=== PATIENT | male | born 1985 | race Two or more races ===

== ENCOUNTER → 2016-11-06 | Outpatient (CLI) | payer BC ==
--- NOTE | 2016-11-07 05:57 | REP ---
Clinical: Venous insufficiency with lower extremity ulceration. Technique: Mercado scale and color Doppler evaluation using linear high frequency transducer followed by reflux evaluation. Findings: Ultrasound examination of the left lower extremity deep venous structures from the common femoral vein to the popliteal vein demonstrates normal compressibility flow and wave patterns in response to respiration and augmentation. There is no evidence for deep venous thrombosis. The patient is noted to be status post ablation and there is complete occlusion of the greater saphenous vein. Longstanding collateral vessels and perforators below the level of the greater saphenous occlusion are noted including collateral vessels draining to the hypogastric vein. Impression: 1. No evidence for deep venous thrombosis. 2. Limited evaluation for reflux with innumerable perforators and collateral vessels involving the superficial venous system. Signed by Micky Dela Cruz MD 11/07/2016 05:49 A
== END ==
LOC: M RAD 13:30
PROVIDERS: ATTEND Surgery
DX: I87.312 Chronic venous hypertension (idiopathic) with ulcer of left lower extremity (principal)

== ENCOUNTER → 2016-12-24 | Outpatient (CLI) | payer BC ==
[~2016-12-24] MED LIST: ANDR1.62 TOP; LYRI75CA PO; PROP10TA56 PO; SERT-138 PO; XARE20TA PO
[2016-12-24 13:19] LABS: MEAN CORPUSCULAR HEMOGLOBIN 36.9 pg (27.0-33.0); MEAN CORPUSCULAR HGB CONC 35.3 g/dl (32.0-36.5); MEAN CORPUSCULAR VOLUME 104.7 fl (80.0-96.0); RED CELL DISTRIBUTION WIDTH 12.5 % (11.5-14.5); WHITE BLOOD COUNT 3.6 K/mm3 (4.0-10.0)
[2016-12-24 14:01] LABS: ANION GAP 9 MEQ/L (8-16); BLOOD UREA NITROGEN 10 MG/DL (7-18); CALCIUM LEVEL 8.9 MG/DL (8.5-10.1); CARBON DIOXIDE LEVEL 25 MEQ/L (21-32); CHLORIDE LEVEL 111 MEQ/L (98-107); CREATININE FOR GFR 0.85 MG/DL (0.70-1.30); GLOMERULAR FILTRATION RATE > 60.0 (>60); GLUCOSE, FASTING 104 MG/DL (70-105); POTASSIUM SERUM 4.1 MEQ/L (3.5-5.1); SODIUM LEVEL 145 MEQ/L (136-145)
== END ==
LOC: M LAB 12:11
PROVIDERS: ATTEND Surgery Vascular Surgery
DX: I70.249 Atherosclerosis of native arteries of left leg with ulceration of unspecified site (principal)

== ENCOUNTER → 2017-01-19 | Outpatient (CLI) | payer BC ==
--- NOTE | 2017-01-19 15:06 | ECGEPIP ---
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 No prior ECG available for comparison at the time of interpretation. Electronically Signed On 01-19-2017 15:05:51 EDT by Óscar Orozco
== END ==
LOC: M EKG 11:11
PROVIDERS: ATTEND Internal Medicine
DX: E66.01 Morbid (severe) obesity due to excess calories (principal)

== ENCOUNTER 2017-01-20 07:02 | Day surgery (SDC) | payer BC ==
[~2017-01-20] VITALS: Ht 188 cm; Wt 158.8 kg
[2017-01-20] MEDS ORDERED: LR 1,000 ML IV ONE (08:00)
[2017-01-20] MEDS ORDERED: LIDOCAINE W/EPINEPHRINE 1% 20ML VIAL As Ordered ONE (08:14)
[2017-01-20] MEDS ORDERED: diphenhydrAMINE INJ 50MG/ML VIAL (J1200) As Ordered ONE (09:07)
[2017-01-20] MEDS ORDERED: dexameTHASONE 4 MG/ML 1ML VIAL (J1100) As Ordered ONE (09:07)
[2017-01-20] MEDS ORDERED: PROPOFOL 500 MG/50 ML VIAL As Ordered ONE (09:07)
[2017-01-20] MEDS ORDERED: fentaNYL 100 MCG/2 ML INJECTION (J3010) As Ordered ONE ×2 (09:07→09:28)
[2017-01-20] MEDS ORDERED: MIDAZOLAM INJ 2 MG/2 ML VIAL (J2250) As Ordered ONE (09:15)
[2017-01-20] MEDS ORDERED: ONDANSETRON 4MG/2ML VIAL (J2405) As Ordered ONE (09:28)
[2017-01-20] MEDS ORDERED: KETOROLAC 60 MG/2 ML VIAL (J1885) As Ordered ONE (09:28)
[2017-01-20] MEDS ORDERED: PROPOFOL 200 MG/20 ML VIAL As Ordered ONE (09:39)
[2017-01-20] MEDS ORDERED: HYDROmorphone HCL 1 MG/ML SYRINGE (J1170) As Ordered ONE (09:58)
[2017-01-20] MEDS ORDERED: PERCOCET 5MG/325MG TAB As Ordered ONE (10:09)
[2017-01-20] MEDS: PERCOCET 5MG/325MG TAB PO PRN ×2 (10:10→11:20)
[2017-01-20] MEDS ORDERED: ONDANSETRON 4MG/2ML VIAL (J2405) IV PRN (10:30)
[2017-01-20] MEDS ORDERED: HYDROmorphone HCL 1 MG/ML SYRINGE (J1170) IV PRN (10:30)
[2017-01-20] MEDS ORDERED: LR 1,000 ML IV SCH (10:30)
[2017-01-20 11:55] VITALS: BP 134/69
--- NOTE | 2017-01-28 11:59 | RO ---
DATE OF PROCEDURE: 01/20/2017 PREOPERATIVE DIAGNOSES: Nonhealing left lower extremity venous stasis ulcer, left greater saphenous vain valvular insufficiency, left lower extremity varicose veins. POSTOPERATIVE DIAGNOSES: Nonhealing left lower extremity venous stasis ulcer, left greater saphenous vain valvular insufficiency, left lower extremity varicose veins. PROCEDURE: Left greater saphenous vein radiofrequency ablation. ATTENDING SURGEON: Dr. Eleazar Wray DIORAMA MODEL MAKER: None. INDICATION: The patient is an 31-year-old male with significant varicosities and reflux in his left lower extremity who underwent an ultrasound showing left greater saphenous vein valvular insufficiency. The patient will undergo a left greater saphenous vein radiofrequency ablation. ANESTHESIA: Local with laryngeal mask airway (LMA) anesthesia. ESTIMATED BLOOD LOSS: 15 mL. INTRAVENOUS (IV) FLUID: 700 mL. SPECIMEN: None. COMPLICATION: None. DRAINS: None. IMPLANTS: None. PROCEDURE: The patient was taken to the operating room and placed supine on the operating room table, and the left lower extremity was prepped and draped in a standard surgical fashion. The greater saphenous vein was cannulated with a micropuncture needle after anesthetizing the overlying skin with 1% lidocaine and using ultrasound guidance. The radiofrequency catheter was then advanced through the greater saphenous vein to the midthigh. The greater saphenous vein in the upper thigh had previously been ablated. The vein was then circumferentially injected around with tumescent solution, after which the greater saphenous vein was ablated using the radiofrequency ablation catheter. The catheter was then removed. Dressings were applied. The patient tolerated the procedure well. All instrument, sponge, and needle counts were correct at the end of the case. There were no complications. Dr. Wray was present for and directed the entire case. The patient was transferred to the recovery room awake, alert, extubated, and in stable condition.
== END 2017-01-20 12:28 | disposition home or self-care (01) ==
LOC: M SDC 07:02
PROVIDERS: ATTEND Surgery Vascular Surgery
DX: I83.028 Varicose veins of left lower extremity with ulcer other part of lower leg (principal); L97.829 Non-pressure chronic ulcer of other part of left lower leg with unspecified severity; G47.30 Sleep apnea, unspecified; Z79.02 Long term (current) use of antithrombotics/antiplatelets; Z79.899 Other long term (current) drug therapy; Z88.8 Allergy status to other drugs, medicaments and biological substances; F32.9 Major depressive disorder, single episode, unspecified; F41.9 Anxiety disorder, unspecified
CPT/HCPCS: 36475; J1100; J1170; J1200; J1885; J2250; J2405; J3010

== ENCOUNTER → 2017-02-03 | Outpatient (CLI) | payer BC ==
--- NOTE | 2017-02-09 08:36 | REP ---
Clinical: Left lower extremity pain. History of prior ablation. Technique: Mercado scale and color Doppler evaluation using linear high frequency transducer. Findings: Ultrasound examination of the left lower extremity deep venous structures from the common femoral vein to the popliteal vein demonstrates thrombus from the common femoral vein through the femoral vein with occlusive thrombus in the distal femoral vein. The patient is status post ablation with thrombus noted in the mid greater saphenous vein. Impression: Acute thrombus extending from the common femoral vein through the distal femoral vein with complete occlusion in the distal femoral vein. Signed by Micky Dela Cruz MD 02/09/2017 08:27 A
== END ==
LOC: M RAD 17:06
PROVIDERS: ATTEND Surgery Vascular Surgery
DX: I83.022 Varicose veins of left lower extremity with ulcer of calf (principal)

== ENCOUNTER → 2018-08-11 | Outpatient (CLI) | payer BC ==
--- NOTE | 2018-08-12 07:35 | REP ---
Clinical: Chronic venous hypertension and swelling . Technique: Mercado scale and color Doppler evaluation of the left lower extremity using linear high frequency transducer. Comparison: 02/03/2017 Findings: Ultrasound examination of the left lower extremity deep venous structures from the common femoral vein to the popliteal vein demonstrates chronic appearing nonocclusive thrombus involving the common femoral vein through mid/distal superficial femoral vein. The patient is noted to be status post ablation with appropriate occlusion of the greater saphenous vein. Evaluation for reflux demonstrates a mild reflux through the common femoral vein, anterior accessory saphenous vein, patent portions of the superficial femoral vein, popliteal vein. Collateral vasculature also identified from the calf to the proximal thigh and appear to bypass the greater saphenous vein and common femoral vein extending directly into the pelvis/mid groin. Impression: 1. 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 2. Reflux through the deep venous system along with collateral vasculature identified from the calf extending towards the left groin/pelvis Electronically Signed by Micky Dela Cruz MD 08/12/2018 07:26 A
== END ==
LOC: M RAD 11:13
PROVIDERS: ATTEND Surgery
DX: I87.312 Chronic venous hypertension (idiopathic) with ulcer of left lower extremity (principal); I70.202 Unspecified atherosclerosis of native arteries of extremities, left leg

== ENCOUNTER 2018-08-15 18:02 | Emergency (ER) | payer BC ==
[~2018-08-15] VITALS: Ht 188 cm; Wt 159.1 kg
[2018-08-15 18:06] VITALS: BP 141/70
== END 2018-08-15 20:08 | disposition home or self-care (01) ==
LOC: M ED 18:02
DX: F43.0 Acute stress reaction (principal); F32.9 Major depressive disorder, single episode, unspecified; R45.851 Suicidal ideations; E11.9 Type 2 diabetes mellitus without complications; I10 Essential (primary) hypertension; Z79.899 Other long term (current) drug therapy; Z88.5 Allergy status to narcotic agent

== ENCOUNTER → 2018-10-26 | Outpatient (CLI) | payer OTHER | LOC: M OUTALCOH 07:58 | PROVIDERS: ATTEND Psychiatry & Neurology Psychiatry | DX: Z13.9 Encounter for screening, unspecified (principal); F15.20 Other stimulant dependence, uncomplicated; F10.20 Alcohol dependence, uncomplicated ==

== ENCOUNTER 2018-11-04 13:57 | Outpatient (RCR) | payer OTHER | END 2018-11-21 | LOC: M OUTALCOH 13:57 | PROVIDERS: ATTEND Psychiatry & Neurology Psychiatry | DX: F10.20 Alcohol dependence, uncomplicated (principal); F15.20 Other stimulant dependence, uncomplicated ==

== ENCOUNTER → 2018-11-09 | Outpatient (REF) | payer OTHER ==
[2018-11-09 13:35] LABS: BASO % 0.7 % (0.0-1.0); EOS # 0.4 10^3/uL (0.0-0.50); EOS % 8.7 % (0.0-3.0); HEMATOCRIT 41.6 % (42.0-52.0); HEMOGLOBIN 13.7 g/dl (13.5-17.5); LYMPH # 1.1 10^3/uL (1.5-4.5); LYMPH % 26.9 % (24.0-44.0); MEAN CORPUSCULAR HEMOGLOBIN 32.9 pg (27.0-33.0); MEAN CORPUSCULAR HGB CONC 32.9 g/dl (32.0-36.5); MEAN CORPUSCULAR VOLUME 99.8 fl (80.0-96.0); MONO # 0.5 10^3/uL (0.0-0.8); MONO % 11.4 % (0.0-5.0); NEUTROPHILS # 2.1 10^3/uL (1.8-7.7); NEUTROPHILS % 52.1 % (36.0-66.0); PLATELET COUNT, AUTOMATED 125 10^3/uL (150-450); RED BLOOD COUNT 4.17 10^6/uL (4.30-6.10); WHITE BLOOD COUNT 4.1 10^3/uL (4.0-10.0)
[2018-11-09 13:52] LABS: INR 1.48; PROTHROMBIN TIME 18.2 SECONDS (12.1-14.4)
[2018-11-09 13:59] LABS: ALBUMIN 3.7 GM/DL (3.2-5.2); ALT/SGPT 47 U/L (12-78); BILIRUBIN,TOTAL 1.5 MG/DL (0.2-1.0); BLOOD UREA NITROGEN 12 MG/DL (7-18); CALCIUM LEVEL 9.3 MG/DL (8.5-10.1); CARBON DIOXIDE LEVEL 28 MEQ/L (21-32); CHLORIDE LEVEL 107 MEQ/L (98-107); CREATININE FOR GFR 0.78 MG/DL (0.70-1.30); GLOMERULAR FILTRATION RATE > 60.0 (>60); GLUCOSE, FASTING 100 MG/DL (70-100); SODIUM LEVEL 140 MEQ/L (136-145); TOTAL PROTEIN 8.5 GM/DL (6.4-8.2)
[2018-11-09 14:31] LABS: CHLAMYDIA DNA AMPLIFICATION NEGATIVE (NEGATIVE); GC DNA AMPLIFICATION NEGATIVE (NEGATIVE)
[2018-11-10 10:11] LABS: HEPATITIS B SURFACE ANTIBODY POSITIVE (POSITIVE)
[2018-11-10 10:20] LABS: HEPATITIS B SURFACE ANTIGEN NEGATIVE (NEGATIVE)
[2018-11-11 00:07] LABS: CHLAMYDIA PHARYNGEAL APTIMA Negative (Negative); CHLAMYDIA RECTAL APTIMA Negative (Negative); GC PHARYNGEAL APTIMA Negative (Negative); GC RECTAL APTIMA Negative (Negative); HEPATITIS A IgG TOTAL Negative (Negative); HEPATITIS B CORE ANTIBODY IGG Negative (Negative)
[2018-11-16 09:13] LABS: HIV 1&2 SCREEN CENTAUR REACTIVE (NEGATIVE)
== END ==
LOC: M SFHCPLAZ 12:09
PROVIDERS: ATTEND Internal Medicine Infectious Disease
DX: Z72.53 High risk bisexual behavior (principal); F10.10 Alcohol abuse, uncomplicated; Z20.6 Contact with and (suspected) exposure to human immunodeficiency virus [HIV]

== ENCOUNTER → 2018-11-23 | Outpatient (REF) | payer OTHER | LOC: M SFHCPLAZ 14:03 | PROVIDERS: ATTEND Internal Medicine Infectious Disease | DX: Z72.53 High risk bisexual behavior (principal); Z20.6 Contact with and (suspected) exposure to human immunodeficiency virus [HIV] ==

== ENCOUNTER → 2019-03-15 | Outpatient (REF) | payer OTHER ==
[2019-03-15 15:57] LABS: BLOOD UREA NITROGEN 14 MG/DL (7-18); CALCIUM LEVEL 9.2 MG/DL (8.5-10.1); CARBON DIOXIDE LEVEL 27 MEQ/L (21-32); CHLORIDE LEVEL 108 MEQ/L (98-107); CREATININE FOR GFR 0.86 MG/DL (0.70-1.30); GLOMERULAR FILTRATION RATE > 60.0 (>60); GLUCOSE, FASTING 97 MG/DL (70-100); POTASSIUM SERUM 4.1 MEQ/L (3.5-5.1); SODIUM LEVEL 139 MEQ/L (136-145)
[2019-03-15 16:08] LABS: APPEARANCE, URINE CLEAR (CLEAR); BACTERIA, URINE AUTO NEGATIVE (NEGATIVE); BILIRUBIN, URINE AUTO NEGATIVE (NEGATIVE); BLOOD, URINE BLOOD NEGATIVE (NEGATIVE); COLOR, URINE YELLOW (YELLOW); GLUCOSE, URINE (UA) AUTO NEGATIVE (NEGATIVE); KETONE, URINE AUTO NEGATIVE (NEGATIVE); LEUKOCYTE ESTERASE, URINE AUTO NEGATIVE (NEGATIVE); MUCUS, URINE SMALL (NEGATIVE); NITRITE, URINE AUTO NEGATIVE (NEGATIVE); PROTEIN, URINE AUTO NEGATIVE (NEGATIVE); RBC, URINE AUTO 1 /HPF (0-3); SPECIFIC GRAVITY URINE AUTO 1.019 (1.002-1.035); SQUAMOUS EPITHELIAL CELL UR AU 0 /HPF (0-6); WBC, URINE AUTO 2 /HPF (0-3)
[2019-03-15 17:40] LABS: CHLAMYDIA DNA AMPLIFICATION NEGATIVE (NEGATIVE); GC DNA AMPLIFICATION NEGATIVE (NEGATIVE)
[2019-03-16 09:57] LABS: HIV 1&2 SCREEN CENTAUR NEGATIVE (NEGATIVE)
[2019-03-20 00:06] LABS: CHLAMYDIA PHARYNGEAL APTIMA Negative (Negative); CHLAMYDIA RECTAL APTIMA Negative (Negative); GC PHARYNGEAL APTIMA Negative (Negative); GC RECTAL APTIMA Negative (Negative)
== END ==
LOC: M SFHCPLAZ 13:59
PROVIDERS: ATTEND Internal Medicine Infectious Disease
DX: Z20.6 Contact with and (suspected) exposure to human immunodeficiency virus [HIV] (principal)

== ENCOUNTER 2019-07-22 10:00 | Outpatient (RCR) | payer OTHER | END 2019-07-23 | LOC: M PT 10:00 | PROVIDERS: ATTEND Internal Medicine | DX: I89.0 Lymphedema, not elsewhere classified (principal) ==

== ENCOUNTER 2019-07-29 11:58 | Outpatient (RCR) | payer OTHER | END 2019-08-23 | LOC: M PT 11:58 | PROVIDERS: ATTEND Internal Medicine | DX: I89.0 Lymphedema, not elsewhere classified (principal) ==

== ENCOUNTER → 2019-12-26 | Outpatient (REF) | payer OTHER ==
[2020-01-22 05:12] LABS: BASO % 0.6 % (0.0-1.0); EOS # 0.2 10^3/uL (0.0-0.5); EOS % 4.9 % (0.0-3.0); HEMATOCRIT 40.4 % (42.0-52.0); HEMOGLOBIN 13.2 g/dl (13.5-17.5); LYMPH # 1.2 10^3/uL (1.5-5.0); LYMPH % 25.5 % (24.0-44.0); MEAN CORPUSCULAR HEMOGLOBIN 31.2 pg (27.0-33.0); MEAN CORPUSCULAR HGB CONC 32.7 g/dl (32.0-36.5); MEAN CORPUSCULAR VOLUME 95.5 fl (80.0-96.0); MONO # 0.5 10^3/uL (0.0-0.8); MONO % 10.6 % (0.0-5.0); NEUTROPHILS # 2.7 10^3/uL (1.5-8.5); NEUTROPHILS % 58.2 % (36.0-66.0); PLATELET COUNT, AUTOMATED 135 10^3/uL (150-450); RED BLOOD COUNT 4.23 10^6/uL (4.30-6.10); WHITE BLOOD COUNT 4.7 10^3/uL (4.0-10.0)
[2020-02-06 10:00] LABS: BLOOD UREA NITROGEN 17 MG/DL (7-18); CALCIUM LEVEL 9.2 MG/DL (8.5-10.1); CARBON DIOXIDE LEVEL 26 MEQ/L (21-32); CHLORIDE LEVEL 108 MEQ/L (98-107); CREATININE FOR GFR 1.13 MG/DL (0.70-1.30); GLOMERULAR FILTRATION RATE > 60.0 (>60); GLUCOSE, FASTING 91 MG/DL (70-100); HIV 1&2 SCREEN CENTAUR NEGATIVE (NEGATIVE); POTASSIUM SERUM 4.2 MEQ/L (3.5-5.1); SODIUM LEVEL 138 MEQ/L (136-145)
[2020-02-11 10:58] LABS: CHLAMYDIA DNA AMPLIFICATION NEGATIVE (NEGATIVE); GC DNA AMPLIFICATION NEGATIVE (NEGATIVE)
[2020-03-16 12:47] LABS: GC PHARYNGEAL APTIMA SEE SEPARATE REPORT; GC RECTAL APTIMA SEE SEPARATE REPORT
[2020-03-16 12:48] LABS: CHLAMYDIA PHARYNGEAL APTIMA SEE SEPARATE REPORT; CHLAMYDIA RECTAL APTIMA SEE SEPARATE REPORT
== END ==
LOC: M SFHCPLAZ 09:38
PROVIDERS: ATTEND Internal Medicine Infectious Disease
DX: R30.0 Dysuria (principal)

== ENCOUNTER → 2022-10-31 | Outpatient (REF) | payer OTHER ==
[2022-10-31 15:28] LABS: GC DNA AMPLIFICATION NEGATIVE (NEGATIVE)
== END ==
LOC: M SFHCPLAZ 12:55
PROVIDERS: ATTEND Internal Medicine Infectious Disease
DX: Z11.3 Encounter for screening for infections with a predominantly sexual mode of transmission (principal)

== ENCOUNTER → 2023-03-19 | Outpatient (REF) | payer OTHER ==
[2023-03-19 21:01] LABS: GC DNA AMPLIFICATION NEGATIVE (NEGATIVE)
[2023-03-19 22:11] LABS: GC DNA AMPLIFICATION NEGATIVE (NEGATIVE)
== END ==
LOC: M SFHCPLAZ 17:05
PROVIDERS: ATTEND Internal Medicine Infectious Disease
DX: Z72.53 High risk bisexual behavior (principal)

== ENCOUNTER → 2023-06-02 | Outpatient (CLI) | payer OTHER | LOC: M PLALAB 15:06 | PROVIDERS: ATTEND Physician Assistant Medical | DX: Z72.53 High risk bisexual behavior (principal); Z20.6 Contact with and (suspected) exposure to human immunodeficiency virus [HIV] ==

== ENCOUNTER → 2023-10-22 | Outpatient (CLI) | payer OTHER ==
[2023-10-26 14:13] LABS: HIV-1 RNA PCR QUANT 2 LC550285 <20 copies/mL (.)
== END ==
LOC: M PLALAB 13:11
PROVIDERS: ATTEND Internal Medicine Infectious Disease
DX: Z72.53 High risk bisexual behavior (principal)

== ENCOUNTER → 2024-02-02 | Outpatient (CLI) | payer OTHER ==
[2024-02-02 15:33] LABS: BASO % 0.8 % (0.0-1.0); EOS # 0.2 10^3/uL (0.0-0.5); EOS % 8.7 % (0.0-3.0); HEMATOCRIT 45.1 % (42.0-52.0); HEMOGLOBIN 15.3 g/dl (13.5-17.5); LYMPH # 0.8 10^3/uL (1.5-5.0); MEAN CORPUSCULAR HEMOGLOBIN 34.3 pg (27.0-33.0); MEAN CORPUSCULAR HGB CONC 33.9 g/dl (32.0-36.5); MEAN CORPUSCULAR VOLUME 101.1 fl (80.0-96.0); MONO # 0.3 10^3/uL (0.0-0.8); MONO % 9.9 % (2.0-8.0); NEUTROPHILS # 1.3 10^3/uL (1.5-8.5); NEUTROPHILS % 50.2 % (36.0-66.0); PLATELET COUNT, AUTOMATED 113 10^3/uL (150-450); RED BLOOD COUNT 4.46 10^6/uL (4.30-6.10); WHITE BLOOD COUNT 2.6 10^3/uL (4.0-10.0)
[2024-02-02 15:56] LABS: C REACTIVE PROTEIN QUANTITATIV < 0.40 MG/DL (<1.0)
[2024-02-02 15:59] LABS: IMMUNOGLOBULIN A 303.4 MG/DL (40-350); IMMUNOGLOBULIN G 1794 MG/DL (650-1600)
[2024-02-02 16:33] LABS: HEPATITIS C VIRUS ABY INDEX 0.06 INDEX (<0.8)
[2024-02-02 17:13] LABS: GC DNA AMPLIFICATION NEGATIVE (NEGATIVE)
[2024-02-02 17:14] LABS: GC DNA AMPLIFICATION NEGATIVE (NEGATIVE)
[2024-02-04 16:12] LABS: FOLATE 12.7 NG/ML (>5.4); VITAMIN B12 LEVEL 375 PG/ML (211-911)
== END ==
LOC: M PLALAB 12:31
PROVIDERS: ATTEND Internal Medicine Infectious Disease
DX: L03.119 Cellulitis of unspecified part of limb (principal); Z72.53 High risk bisexual behavior

== ENCOUNTER → 2024-03-22 | Outpatient (CLI) | payer OTHER ==
[2024-03-23 11:48] LABS: HIV-1 RNA PCR QUANT 2 NOT DETECTED copies/mL (NOT DETECTED); HIV-1 RNA PCR QUANT 3 NOT DETECTED (NOT DETECTED)
== END ==
LOC: M PLALAB 12:57
PROVIDERS: ATTEND Internal Medicine Infectious Disease
DX: Z72.53 High risk bisexual behavior (principal)

== ENCOUNTER → 2024-05-12 | Outpatient (CLI) | payer OTHER ==
[2024-05-12 16:38] LABS: HEMATOCRIT 44.8 % (42.0-52.0); HEMOGLOBIN 15.3 g/dl (13.5-17.5); MEAN CORPUSCULAR HGB CONC 34.2 g/dl (32.0-36.5); MEAN CORPUSCULAR VOLUME 102.5 fl (80.0-96.0); PLATELET COUNT, AUTOMATED 104 10^3/uL (150-450); RED BLOOD COUNT 4.37 10^6/uL (4.30-6.10); WHITE BLOOD COUNT 4.1 10^3/uL (4.0-10.0)
[2024-05-12 17:08] LABS: C REACTIVE PROTEIN QUANTITATIV 2.76 MG/DL (<1.0)
[2024-05-12 17:20] LABS: ATYPICAL LYMPH 1 % (0-5); BASOPHILS 1 % (0-1); EOSINOPHILS 7 % (0-3); LYMPHOCYTES 15 % (16-44); MONOCYTES 8 % (0-5); NEUTROPHILS 65 % (28-66); PLATELET ESTIMATE DECREASED (NORMAL)
[2024-05-12 18:07] LABS: HIV 1&2 SCREEN NEGATIVE (NEGATIVE)
[2024-05-12 18:21] LABS: GC DNA AMPLIFICATION NEGATIVE (NEGATIVE)
[2024-05-12 18:22] LABS: GC DNA AMPLIFICATION NEGATIVE (NEGATIVE)
[2024-05-16 18:57] LABS: HIV-1 RNA PCR QUANT 2 NOT DETECTED copies/mL (NOT DETECTED); HIV-1 RNA PCR QUANT 3 NOT DETECTED (NOT DETECTED)
== END ==
LOC: M PLALAB 11:39
PROVIDERS: ATTEND Internal Medicine Infectious Disease
DX: Z72.53 High risk bisexual behavior (principal); K62.89 Other specified diseases of anus and rectum; L03.119 Cellulitis of unspecified part of limb

== ENCOUNTER → 2024-07-05 | Outpatient (CLI) | payer OTHER | LOC: M PLALAB 11:00 | PROVIDERS: ATTEND Internal Medicine Infectious Disease | DX: Z72.53 High risk bisexual behavior (principal) ==

== ENCOUNTER → 2024-08-30 | Outpatient (CLI) | payer OTHER ==
[2024-08-30 14:39] LABS: C REACTIVE PROTEIN QUANTITATIV < 0.50 MG/DL (<1.0)
[2024-08-30 14:56] LABS: HEMATOCRIT 45.7 % (42.0-52.0); HEMOGLOBIN 15.3 g/dl (13.5-17.5); MEAN CORPUSCULAR HEMOGLOBIN 33.7 pg (27.0-33.0); MEAN CORPUSCULAR HGB CONC 33.5 g/dl (32.0-36.5); MEAN CORPUSCULAR VOLUME 100.7 fl (80.0-96.0); RED BLOOD COUNT 4.54 10^6/uL (4.30-6.10)
[2024-08-30 15:00] LABS: PLATELET COUNT, AUTOMATED 89 10^3/uL (150-450); WHITE BLOOD COUNT 2.6 10^3/uL (4.0-10.0)
[2024-08-30 15:12] LABS: HIV 1&2 SCREEN NEGATIVE (NEGATIVE)
[2024-08-30 15:39] LABS: ATYPICAL LYMPH 3 % (0-5); BASOPHILS 1 % (0-1); EOSINOPHILS 5 % (0-3); LYMPHOCYTES 50 % (16-44); MONOCYTES 5 % (0-5); NEUTROPHILS 36 % (28-66)
[2024-08-30 15:40] LABS: PLATELET ESTIMATE DECREASED (NORMAL)
== END ==
LOC: M PLALAB 10:32
PROVIDERS: ATTEND Internal Medicine Infectious Disease
DX: Z20.6 Contact with and (suspected) exposure to human immunodeficiency virus [HIV] (principal)